=== PATIENT | female | born 1940 | race Caucasian/White ===

== ENCOUNTER 2019-07-25 09:33 | Day surgery (SDC) ==
--- NOTE | 2019-07-17 15:19 | EKG Report ---
Test Performed on : 07/17/2019 2:38:00 PM Test Reason : pat Blood Pressure : / mmHG Vent. Rate : 055 BPM Atrial Rate : 055 BPM P-R Int : 152 ms QRS Dur : 076 ms QT Int : 432 ms P-R-T Axes : 048 -03 027 degrees QTc Int : 413 ms Sinus bradycardia. Otherwise normal ECG No previous ECGs available Confirmed by Dejon Mcmullen MD ([id number]) on 07/20/2019 10:25:02 PM
[2019-07-17 15:33] LABS: HEMATOCRIT 42.7 % (37.0-47.0); HEMOGLOBIN 14.2 g/dL (12.0-16.0); MCHC 33.3 g/dL (33-37); MCV 93.2 FL (81-99); MPV 10.8 FL (7.4-10.4); RBC 4.58 XMIL (4.2-5.4); RDW 14.2 % (11.5-14.5); WBC 8.98 X1000 (4.8-10.8)
[2019-07-17 15:43] LABS: AGAP 11; BUN 9 mg/dL (8-22); CALCIUM 9.8 mg/dL (8.8-10.2); CHLORIDE 104 mmol/L (98-107); COSMO 280; CREATININE 0.8 mg/dL (0.5-0.9); ESTIMATED GFR > 60; GLUCOSE 95 mg/dL (70-104); POTASSIUM 3.9 mmol/L (3.5-5.1); SODIUM 141 mmol/L (136-145); TCO2 26 mmol/L (25-35)
--- NOTE | 2019-07-25 07:04 | HISTORY AND PHYSICAL ---
HISTORY OF PRESENT ILLNESS: A 79-year-old female who has had chronic UTIs. She has also had dysuria, pressure and pelvic pain. She was seen by a urologist and a urogynecologist. She had tried Imuran and DMSO treatments. She reports bladder pain, which is in a certain position or stands for prolonged periods of time. She was diagnosed with a rectocele, cystocele, and vaginal wall prolapse. She has tried pessary but could not tolerate it. She desires intervention. PAST MEDICAL HISTORY: Arthritis, hypertension, stroke, hypothyroidism, pelvic organ prolapse. PAST SURGICAL HISTORY: Tonsillectomy, cholecystectomy, breast lump excision, lower extremity surgery. HOME MEDICATIONS: Zetia, Prilosec, Pepcid, nitrofurantoin, Lopid, Cozaar. ALLERGIES: Aspirin, ibuprofen, tape. FAMILY HISTORY: Positive for diabetes, coronary artery disease. SOCIAL HISTORY: Denies tobacco, alcohol, or illicit drugs. PHYSICAL EXAMINATION: GENERAL: No acute distress. HEENT: Normocephalic, atraumatic. CARDIOVASCULAR: Regular rhythm. PULMONARY: Bilateral breath sounds. ABDOMEN: Soft, protuberant, nontender to palpation. GENITOURINARY: Atrophic tissues noted, grade 2 cystocele, vaginal vault prolapse to the level of the introitus, grade 2 rectocele. ASSESSMENT AND PLAN: A 79-year-old female with pelvic organ prolapse. She still has her uterus. I have discussed with the patient that she would be pizarro to consult with her office equipment mechanic who is Dr. Alexander to discuss concomitant hysterectomy and prolapse repair. She states that she would like to keep her uterus and have the repair by me. We discussed that she would benefit from an anterior and posterior repair and vaginal vault suspension, as well as a midurethral sling. She was counselled on primary repair versus graft-assisted repair. Given her attenuated and weak pubocervical and rectovaginal fascia I recommended graft-assisted repair. She feels strongly about primary repair. We discussed risks of the procedure, including, but not limited to, bleeding, infection, injury to the bladder, injury to her adjacent structures, injury to the rectum, injury to the ureter, postoperative urinary retention, dyspareunia, and failure to correct prolapse. We discussed that with primary repair she will have a 50% chance of prolapse recurrence within 5 years. We also discussed Altis midurethral sling with risks including, but not limited to, bleeding, infection, injury to the urethra, injury to the bladder, injury to the ureters, urinary retention, dyspareunia, failure of sling to correct urinary incontinence and specifically discussed that the sling was made out of mesh with concerns for mesh product, including erosion and infection that could necessitate removal of part or entire sling. She voiced understanding and wants to proceed. PLAN: Primary cystocele repair, extraperitoneal vaginal vault suspension, prior rectocele repair, Altis midurethral sling, cystoscopy. cc: Sanjay Guzman MD
[2019-07-25] MEDS ORDERED: KEFZOL 1 GM/D5W 1 GM/50 ML IVPB ONE ×2 (10:20→10:40)
[2019-07-25] MEDS ORDERED: LR 1,000 ML ONE (10:20)
[2019-07-25] MEDS ORDERED: PEPCID ONE (10:20)
[2019-07-25] MEDS ORDERED: REGLAN ONE (10:20)
[2019-07-25] MEDS ORDERED: DIPRIVAN 1% ONE (11:56)
[2019-07-25] MEDS ORDERED: ROBINUL ONE ×2 (12:01→14:22)
[2019-07-25] MEDS ORDERED: XYLOCAINE-MPF 2% ONE (12:01)
[2019-07-25] MEDS ORDERED: METROGEL-VAGINAL 0.75% GEL ONE (12:31)
[2019-07-25] MEDS ORDERED: BACITRACIN ONE (12:31)
[2019-07-25] MEDS ORDERED: SODIUM CHLORIDE 0.9% 10 ML ONE (12:31)
[2019-07-25] MEDS ORDERED: MARCAINE 0.25% ONE (12:31)
[2019-07-25] MEDS ORDERED: NEOSPORIN G.U. IRRIGANT ONE (12:32)
[2019-07-25] MEDS ORDERED: DECADRON ONE (12:51)
[2019-07-25] MEDS ORDERED: ZOFRAN ONE (12:51)
[2019-07-25] MEDS ORDERED: TORADOL ONE (12:51)
[2019-07-25] MEDS ORDERED: OFIRMEV 1000 MG/ISOTONIC SOLN 1,000 MG/100 ML BOTTLE ONE (12:51)
[2019-07-25] MEDS ORDERED: LABETALOL (DOSE) ONE (13:12)
[2019-07-25] MEDS ORDERED: DILAUDID ONE (13:45)
[2019-07-25] MEDS ORDERED: ZEMURON ONE ×2 (13:49→14:02)
[2019-07-25 14:00] LABS: URINE SOURCE CATH
[2019-07-25 14:02] LABS: BILIRUBIN URINE NEGATIVE (NEGATIVE); BLOOD URINE NEGATIVE (NEGATIVE); COLOR STRAW; GLUCOSE URINE NEGATIVE (NEGATIVE); KETONE URINE NEGATIVE (NEGATIVE); LEUKOCYTES URINE NEGATIVE (NEGATIVE); NITRITE URINE NEGATIVE (NEGATIVE); PH URINE 6.5; PROTEIN URINE NEGATIVE (NEGATIVE); SP GRAVITY URINE 1.006; TURBIDITY URINE CLEAR (CLEAR); UR EPITHELIAL CELLS <10 /HPF (<10); URINE BACTERIA NEGATIVE /HPF; URINE RBC <10 /HPF (<10); URINE WBC <10 /HPF (<10); UROBILINOGEN URINE NORMAL (NORMAL)
[2019-07-25] MEDS ORDERED: NEOSTIGMINE ONE (14:22)
[2019-07-25] MEDS ORDERED: EPHEDRINE ONE (14:39)
[2019-07-25] MEDS ORDERED: AK-FLUOR ONE (14:44)
[2019-07-25] MEDS ORDERED: NS 1,000 ML ONE (15:39)
[2019-07-25] MEDS ORDERED: MORPHINE IV PRN (17:25)
[2019-07-25] MEDS ORDERED: ZOFRAN IV PRN (17:30)
[2019-07-25] MEDS ORDERED: PHENERGAN IV PRN (17:30)
[2019-07-25] MEDS ORDERED: LABETALOL IV PRN (17:30)
[2019-07-25] MEDS ORDERED: SODIUM CHLORIDE 0.9% INJ PRN (17:30)
[2019-07-25] MEDS ORDERED: OFIRMEV 1000 MG/ISOTONIC SOLN 1,000 MG/100 ML BOTTLE IV PRN (17:30)
[2019-07-25] MEDS ORDERED: PHENERGAN PR PRN (17:30)
[2019-07-25] MEDS ORDERED: NORCO-7.5 PO PRN (17:30)
[2019-07-25] MEDS ORDERED: PHENERGAN PO PRN (17:30)
[2019-07-25] MEDS ORDERED: NORCO-10 PO PRN (17:30)
[2019-07-25] MEDS ORDERED: DITROPAN PO PRN (17:30)
[2019-07-25] MEDS: NORCO-5 PO PRN (17:40)
[2019-07-25] MEDS: NS 1,000 ML IV SCH (17:42)
[2019-07-25] MEDS ORDERED: BLISTEX MEDICATED BERRY LIP BALM TOP PRN (18:49)
[2019-07-25] MEDS: KEFZOL 2 GM/D5W 2 GM/50 ML IVPB IV SCH (20:30)
[2019-07-25] MEDS: PERIDEX MT SCH (20:30)
[2019-07-25] MEDS: COLACE PO SCH (20:30)
[2019-07-25] MEDS ORDERED: LOPID PO SCH (21:00)
[2019-07-26] MEDS: KEFZOL 2 GM/D5W 2 GM/50 ML IVPB IV SCH ×2 (03:35→11:00)
[2019-07-26] MEDS: NS 1,000 ML IV SCH (06:18)
[2019-07-26] MEDS ORDERED: PRILOSEC PO SCH (07:00)
[2019-07-26 08:21] LABS: HEMATOCRIT 34.4 % (37.0-47.0); MCH 30.4 PG (27-31); MPV 10.7 FL (7.4-10.4); RBC 3.62 XMIL (4.2-5.4); WBC 13.81 X1000 (4.8-10.8)
[2019-07-26] MEDS: COLACE PO SCH (08:47)
[2019-07-26] MEDS: COZAAR PO SCH ×2 (08:47→08:51)
[2019-07-26] MEDS: PROCARDIA ER PO SCH ×2 (08:47→08:54)
[2019-07-26] MEDS: PEPCID PO SCH ×2 (08:47→08:52)
[2019-07-26] MEDS: PERIDEX MT SCH (08:48)
[2019-07-26 08:52] LABS: AGAP 12; BUN 8 mg/dL (8-22); CHLORIDE 103 mmol/L (98-107); COSMO 279; CREATININE 0.8 mg/dL (0.5-0.9); ESTIMATED GFR > 60; GLUCOSE 122 mg/dL (70-104); POTASSIUM 3.7 mmol/L (3.5-5.1); SODIUM 140 mmol/L (136-145); TCO2 25 mmol/L (25-35)
[2019-07-26] MEDS ORDERED: ZETIA PO SCH (09:00)
[2019-07-26] MEDS: NORCO-5 PO PRN ×2 (11:05→14:32)
[2019-07-26 11:27] VITALS: BP 146/73
--- NOTE | 2019-08-25 21:43 | OPERATIVE NOTE ---
PROCEDURE DATE: 07/25/2019 SURGEON: Dr. Sanjay Guzman. PREOPERATIVE DIAGNOSES: 1. Symptomatic cystocele. 2. Symptomatic rectocele. 3. Vaginal vault prolapse. 4. Stress urinary incontinence. 5. Weakening of pubocervical fascia. 6. Incompetence of rectovaginal fascia. POSTOPERATIVE DIAGNOSES: 1. Symptomatic cystocele. 2. Symptomatic rectocele. 3. Vaginal vault prolapse. 4. Stress urinary incontinence. 5. Weakening of pubocervical fascia. 6. Incompetence of rectovaginal fascia. PROCEDURE: 1. Cystocele repair with [place] dermis graft. 2. Rectocele repair with [place] dermis graft. 3. Extraperitoneal vaginal vault suspension, placement of Altis mid urethral sling. 4. Cystourethroscopy x2. INDICATIONS: A 79-year-old female with pelvic organ prolapse who still has a uterus. She was counseled on consideration of hysterectomy concomitantly with the TRAIN EXAMINER colleagues. She declined. She was counselled that post repair she may have recurrence of the prolapse given her persistent uterus. She voiced understanding. FINDINGS: Cystourethroscopy after cystocele repair revealed no evidence of injury to the urethra or the bladder and bilateral ureteral efflux. Digital rectal examination after rectocele repair revealing no evidence of injury to the rectum. Cystourethroscopy after sling placement showed no evidence of urethral or bladder injury and bilateral clear ureteral efflux. After obtaining informed consent, the patient was brought to the operating room. Preoperative antibiotics and anesthesia were administered. She was placed in lithotomy position with her upper and lower extremities appropriately padded. She was prepped in sterile fashion. A 16-Ecuadorean Epps catheter was introduced and the bladder was drained. We used Gravity retractor for exposure. Then, 40 mL of Marcaine with epinephrine diluted 50:50 with normal saline were used for hydrodissection from the level of bladder neck to the vaginal apex. We then made approximately 6 cm incision along the midline of the anterior vagina. Dissection extended through the entire vaginal epithelium. We then developed the plane between the bladder and the vaginal tissue. Ultimately, surgeon's finger was able to palpate the ischial spine and sacrospinous ligament bilaterally. We then dissected anteriorly to the level of bladder neck as evident by palpable balloon. We dissected toward the vaginal apex until the cervix was seen. A 2-0 PDS suture x2 was used to secure the vaginal apex. We then using Anchorsure suture to place them through the sacrospinous ligament approximately 2 cm medial to the ischial spine bilaterally. Those were secured. We placed 2 PDS sutures as well, the bladder neck and secured those as well. We then opened the 8 x 12 cm [place] dermis graft and prepared it on the back table by soaking it in normal saline for 5 minutes and then trimming it to accommodate the patient's anatomy. We used Jhonatan needles as well as previously placed PDS suture needles into place the sutures through the distal arms and proximal arms of the graft as well as the posterior midline arms of the graft to the vaginal apex and anterior midline part of the graft at the bladder neck. The sutures were then tied down allowing us to reduce the cystocele and allowing the graft to lie flat against the bladder. A 2-0 PDS suture was used x2 to secure the anterior arms of the graft to the obturator membrane. We then performed cystourethroscopy with 70-degree lens. There was no evidence of injury to the urethra. There was no evidence of injury to the bladder. I was able to see bilateral clear ureteral efflux. The bladder showed no evidence of mucosal lesions, no excessive trabeculations, no diverticula. Upon withdrawal cystoscope again unremarkable ureteral appearance was confirmed. We then copiously irrigated the incision and closed it with a running 2-0 Vicryl suture reapproximating deeper vaginal tissues to assist with graft imbibition. This was followed by irrigation of the wound, closure of the epithelium with a 2-0 Vicryl suture in running fashion. Attention was then turned to posterior repair. She had a fairly sizeable rectocele. Then, 20 mL of Marcaine with epinephrine diluted 50:50 with normal saline was used for posterior hydrodissection. We made a 5 cm incision in the midline followed by dissection with Metzenbaum scissors to incise the vaginal epithelium. The rectum was from the posterior vaginal epithelium. Surgeon's finger was used to free the rectum from the posterior vaginal wall until sacrospinous ligaments were palpable. The previously placed Anchorsure anchors were palpable as well. We then placed 2-0 PDS sutures in the vaginal vault, as well as 2 Anchorsure PDS sutures through the sacrospinous ligament just medial to the anteriorly placed cystocele Anchorsure sutures. We then opened and prepared an 8 x 6 [place] dermis graft on the back table. It was trimmed to accommodate the patient's anatomy. This was followed by introduction of the previously placed sutures through the arms of the [place] dermis. It was approximated snug to the rectum by tightening the sutures. It appeared to lie flat without being redundant or colon. I then replaced interrupted 2-0 PDS sutures to plicate the posterior aspect of the graft toward the perineum reapproximating it to the vaginal tissue. This was done x3 on each side. That allowed us to reduce the rectocele nicely. Digital rectal examination revealed no palpable evidence of rectal injury. We then copiously irrigated the wound. A 2-0 Vicryl suture was used to close the deeper vaginal tissues to again assist with graft imbibition. The wound was irrigated copiously and 2-0 Vicryl suture was used to close the posterior vaginal epithelium. Attention was then turned to place in a mid urethral sling. A 10 mL of Marcaine with epinephrine diluted in 50:50 normal saline were used in the left mid urethra. Approximately 3 cm incision was made and Metzenbaum scissors were used to dissect the vaginal epithelium and free off periurethral spaces. Those were freed until surgeon's small finger was able to palpate the obturator membrane. The sling was opened and prepared on the back table by soaking in saline loosening the tightening suture. We then used trocars in the inside-out fashion per tractor driver teamster instructions to introduce it through the right obturator membrane, subsequent left obturator membrane. Tightening suture was used to adjust the sling tension appropriately. Epps catheter was removed and the cystourethroscope was introduced with 70-degree lens. There was no evidence of injury to the urethra. There was no evidence of injury to the bladder. I was able to visualize bilateral clear ureteral efflux. The cystourethroscope was then removed and a 16-Ecuadorean Epps catheter was replaced. A 3-0 Vicryl suture was used to reapproximate the vaginal epithelium. This was in a running fashion. Following that, a vaginal packing coated with Flagyl was introduced. Epps catheter was placed to gravity drainage. She was extubated and taken to PACU for further recovery. ESTIMATED BLOOD LOSS: 400 mL. SPECIMENS: None. DRAINS: A 16-Ecuadorean Epps catheter. DISPOSITION: To PACU and subsequently floor for observation with vaginal packing in place and Epps catheter to gravity drainage. cc: Sanjay Guzman MD
== END 2019-07-26 14:47 | disposition home or self-care (01) ==
LOC: 4N 09:33 → OR 09:33
PROVIDERS: ATTEND Urology